=== PATIENT | male | born 1985 | race Caucasian/White ===

== ENCOUNTER → 2020-08-07 12:59 | Outpatient (BNVA) | payer OTHER, SELFPAY | PROVIDERS: PCP Internal Medicine; Visit Provider Physician Assistant ==

== ENCOUNTER 2020-08-09 15:42 | Outpatient (REF) | payer OTHER, SELFPAY ==
[2020-08-09 16:21] LABS: MANUAL DIFF FLAG NO
[2020-08-09 16:30] LABS: Basophils Absolute Auto 0.1 X10*3/uL (0.0-0.2); Basophils Percent Auto 0.7 % (0-2); Eosinophils Absolute Auto 0.3 X10*3/uL (0.0-0.4); Eosinophils Percent Auto 2.7 % (0-4); Hematocrit 45.4 % (42-52); Hemoglobin 14.8 g/dl (14.0-18.0); Imm Gran Abs Auto 0.04 X10*3/uL (0.00-0.03); Imm Gran Pct Auto 0.4 % (0.0-0.4); Lymphocytes Absolute Auto 2.9 X10*3/uL (1.2-4.9); Lymphocytes Percent Auto 26.6 % (20-40); Mean Corpuscular HGB Conc 32.6 g/dl (31.0-36.0); Mean Corpuscular Hemoglobin 29.5 pg (27.0-33.0); Mean Corpuscular Volume 90.6 fL (80-98); Mean Platelet Volume 11.3 fL (9.4-12.4); Monocytes Absolute Auto 1.1 X10*3/uL (0.1-1.2); Monocytes Percent Auto 9.7 % (2-11); Neutrophils Absolute Auto 6.5 X10*3/uL (2.0-8.3); Neutrophils Percent Auto 59.9 % (45-73); Platelet Count 276 X10*3/uL (160-400); Red Blood Count 5.01 X10*6/uL (4.60-5.80); Red Cell Distribution Width 12.6 % (11.0-16.0); White Blood Count 10.8 X10*3/uL (4.8-10.8)
[2020-08-09 16:45] LABS: Alanine Aminotransferase 64 U/L (0-40); Albumin Level 4.7 g/dL (3.5-5.0); Alkaline Phosphatase 73 U/L (39-117); Anion Gap 11 (12-20); Aspartate Amino Transferase 34 U/L (5-37); Bilirubin Total 0.5 mg/dL (0.0-1.0); Blood Urea Nitrogen 12 mg/dL (9-16); Calcium 9.2 mg/dL (8.4-10.2); Carbon Dioxide 28 mmol/L (22-29); Chloride 105 mmol/L (96-108); Estimated Glomerular Filt Rate > 60; Glucose Random 93 mg/dL (60-115); Potassium 4.1 mmol/L (3.3-5.1); Sodium 140 mmol/L (135-145); Total Protein 7.3 g/dL (6.5-8.0)
== END 2020-08-09 15:43 | disposition home or self-care (01) ==
LOC: HO.LAB 15:42
PROVIDERS: Physician Assistant; PCP Internal Medicine; Visit Provider Nurse Practitioner Gerontology
DX: R74.01 Elevation of levels of liver transaminase levels (principal); R10.11 Right upper quadrant pain
CPT/HCPCS: 36415; 80053; 85025

== ENCOUNTER 2020-08-15 16:37 | Outpatient (REF) | payer OTHER, SELFPAY | END 2020-08-15 16:38 | disposition home or self-care (01) | LOC: HO.LNP 16:37 | PROVIDERS: Visit Provider Physician Assistant | DX: A04.8 Other specified bacterial intestinal infections (principal) | CPT/HCPCS: 87338 ==

== ENCOUNTER 2020-08-16 08:26 | Outpatient (REF) | payer OTHER, SELFPAY ==
--- NOTE | ~2020-08-16 | US_ITS ---
EXAMINATION: US ABDOMEN COMPLETE CLINICAL INFORMATION: Unspecified abdominal pain. COMPARISON: CT abdomen and pelvis 05/10/2017. Ultrasound abdomen 02/20/2012 and 01/24/2012. TECHNIQUE: Real-time imaging of the abdominal viscera. FINDINGS: PANCREAS: Not well seen due to overlying bowel gas. ABDOMINAL AORTA: The proximal, mid, and distal segments are normal in caliber. INFERIOR VENA CAVA: Visualized portions are normal. LIVER: The liver is normal in size. The liver contour is normal. There is diffuse increased liver parenchymal echogenicity, consistent with hepatic steatosis. No focal hepatic lesion. There is no intrahepatic biliary duct dilatation seen. GALLBLADDER: Surgically absent. COMMON BILE DUCT: Normal in caliber measuring 0.5 cm in diameter. RIGHT KIDNEY: Normal. No hydronephrosis. No renal calculi or focal parenchymal lesions. The kidney measures 12.0 cm in maximum dimension. LEFT KIDNEY: Normal. No hydronephrosis. No renal calculi or focal parenchymal lesions. The kidney measures 12.1 cm in maximum dimension. SPLEEN: Normal. The spleen measures 9.8 cm in maximum dimension. FREE FLUID: None. US/US abdomen complete IMPRESSION: Redemonstration of hepatic steatosis. No hepatic parenchymal lesion or biliary ductal dilatation. Otherwise unremarkable examination.
== END 2020-08-16 08:27 | disposition home or self-care (01) ==
LOC: HO.US 08:26
PROVIDERS: PCP Internal Medicine; Visit Provider Physician Assistant
DX: R10.9 Unspecified abdominal pain (principal); A04.8 Other specified bacterial intestinal infections
CPT/HCPCS: 76700

== ENCOUNTER → 2020-08-23 13:11 | Outpatient (BNVA) | payer OTHER, SELFPAY | PROVIDERS: PCP Internal Medicine; Visit Provider Physician Assistant ==

== ENCOUNTER 2025-04-06 14:47 | Outpatient (AMB) | payer OTHER, SELFPAY ==
--- NOTE | 2025-04-06 14:51 | MHC.PC.OV ---
Vital Signs 04/06/25 14:55 Height 5 ft 9.09 in Weight 198 lb 6 oz BMI 29.2 BP 143/90 H Blood Pressure Location Rt brachial Position Sitting Respiration 16 Pulse 107 H Pulse Source Pulse Oximeter Temp 98.1 F Temp Source Oral Pulse Oximetry (%) 97 Oxygen Delivery Method Room Air Intake Visit Reasons: DIRECTOR POST Complex / frequent changes in urine color Photogrammetric Surveyor Required: No Accompanied by: Self / Same As Patient Allergies acetaminophen (From Percocet) Adverse Reaction (Unknown, Verified 04/06/25 14:51) Nausea/Vomiting oxycodone (From Percocet) Adverse Reaction (Unknown, Verified 04/06/25 14:51) Nausea/Vomiting Tobacco use date assessed: 04/06/25 Dental Screening Dental Screen Date: 04/06/25 Did you have a dental visit in the last 12 months?: Yes Did you have a dental problem in the last 6 months where you did not have access to dental care?: No Was dental information given to patient?: Patient has dentist HPI HPI Comments History of Present Illness Details History of Present Illness The patient is a 39-year-old male presenting for evaluation of an episode of gross hematuria. Gross Hematuria: The patient reports one episode of gross hematuria yesterday, which he noticed after a bowel movement. He describes the urine as a massive red color, like blood, with no azure principal solution specialist shade. He states this has never happened before to this degree, although he has experienced azure principal solution specialist-colored urine in the past when he had gallstones. He denies consumption of foods that could alter urine color, such as beets. Gastroesophageal Reflux Disease (GERD): The patient has a history of chronic heartburn. He reports waking up with nausea and occasionally vomiting a little upon opening his mouth. He is currently taking omeprazole 20 mg but reports it is not effective. Fatty Liver Disease: The patient has a known history of fatty liver. He also reports that his skin appears yellow. History of Cholecystectomy: The patient has a history of gallstones and underwent a cholecystectomy. Family History of Polycystic Kidney Disease: The patient reports his mother suffered from kidney cysts, which led to high blood pressure. He states her kidneys were ultimately destroyed by the cysts. Social History: The patient has been smoking marijuana for five years and denies any other illicit drug use. 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 Surgical History: - Cholecystectomy for gallstones Medications: - Omeprazole 20 mg for acid reflux, which the patient reports as ineffective. Social History: - Employment: Patient is employed as a warehouse assistant. - Substance Use: He has smoked marijuana for 5 years and denies the use of other drugs. Family History: - Mother: History of kidney cysts, which caused hypertension and resulted in renal failure. Past Medical History - Fatty liver disease - Cholelithiasis - Gastroesophageal reflux disease - History of muscle spasm diagnosed by CT scan and X-ray in [facility] Maintenance - Substance use was discussed, with the patient reporting marijuana use. [facility] Medical History (Updated 04/06/25 @ 22:30 by Ross Patel MD) Marijuana use Family history of polycystic kidney disease Fatty liver Gross hematuria Acid reflux Surgical History History of cholecystectomy (~2014) Family History Father No problems noted. Mother Hypertension CVA (cerebral vascular accident) Kidney disease Social History Household Members: Spouse Housing: House Alcohol intake: current Alcohol intake frequency: a few times a week Patient Tobacco Use Status: Never used Tobacco Cigarettes Per Day: 3 Substance Use Type: Marijuana service: No Current occupational status: employed Current occupation: [employer] Assistant Cognitive needs: No Hearing needs: No Vision needs: No Questionnaire PHQ-9 Over the last 2 weeks, how often have you been bothered by any of the following problems? 1. Little interest or pleasure in doing things: not at all 2. Feeling down, depressed, or hopeless: not at all 3. Trouble falling or staying asleep, or sleeping too much: not at all 4. Feeling tired or having little energy: not at all 5. Poor appetite or overeating: not at all 6. Feeling bad about yourself - or that you are a failure or have let yourself or your family down: not at all 7. Trouble concentrating on things, such as reading the newspaper or watching television: not at all 8. Moving or speaking so slowly that other people could have noticed. Or the opposite - being so fidgety or restless that you have been moving around a lot more than usual: not at all 9. Thoughts that you would be better off or of hurting yourself in some way: not at all Total score: 0 Source: Developed by Drs. Jamey Gonzalez, Feli Macias, Remberto Roy and colleagues, with an educational nirmala from [employer]. Thrive Questionnaire Date Thrive assessed: 04/05/25 I am a: Patient What is your living situation today?: I have a steady place to live Within the past 12 months, did the food you bought not last and you didn't have the money to get more?: Sometimes True Within the past 12 months, did you worry whether your food would run out before you got money to buy more?: Sometimes True Do you have trouble paying for medicines?: No Do you have trouble getting transportation to medical appointments?: No Do you have trouble paying your heating and electricity bill?: Yes Do you have trouble taking care of your child, family member or friend?: No Do you have trouble with day-to-day activities such as bathing, preparing meals, shopping, managing finances, etc.?: No Are you currently unemployed and looking for a job?: No Are you interested in more education?: No Please select the resources that you would like help with: Food and Utilities Currently or been in a relationship where the following occur: I choose not to answer THRIVE Score: 3 AUDIT C Alcohol Use Questionnaire (AUDIT-C) 1. How often do you have a drink containing alcohol?: 2-3 times a week 2. How many drinks containing alcohol do you have on a typical day when you are drinking?: 5 or 6 3. How often do you have six or more drinks on one occasion?: Weekly Total Score: 8 RAJENDRA-7 AMB Questionnaire RAJENDRA-7 Feeling nervous, anxious, or on edge: 0 = Not at all Not being able to stop or control worryin = Not at all Worrying too much about different things: 0 = Not at all Trouble relaxin = Not at all Being so restless that it is hard to sit still: 0 = Not at all Becoming easily annoyed or irritable: 0 = Not at all Feeling afraid as if something awful might happen: 0 = Not at all Total RAJENDRA-7 score (0-4 normal; 5-9 mild; 10-14 moderate; 15-21 severe): 0 Source: Developed by Drs. Jamey Gonzalez, Feli Macias, Remberto Roy and colleagues, with an educational nirmala from [employer]. Review of Systems Narrative Review of Systems - Genitourinary: Reports one episode of gross hematuria yesterday. - Gastrointestinal: Reports chronic heartburn, morning nausea, and occasional vomiting. - Integumentary: Reports his skin is yellow. - Constitutional: Denies feeling unwell, stating he feels fantastic. 10-point ROS reviewed and negative except as noted in HPI Physical exam (Primary Care) Vital Signs: Last Vital Signs Temp 98.1 F 04/06/25 14:55 Pulse 107 H 04/06/25 14:55 Resp 16 04/06/25 14:55 BP 143/90 H 04/06/25 14:55 Pulse Ox 97 04/06/25 14:55 Oxygen Delivery Method Room Air 04/06/25 14:55 BMI result Body Mass Index 29.2 Tobacco/Smoking Status: Tobacco use Status Tobacco use date assessed 04/06/25 04/06/25 15:02 Patient Tobacco Use Status Never used Tobacco 04/06/25 15:02 PHQ-9: PHQ-9 Score PHQ-9: Total score 0 04/06/25 14:51 Thrive Assessment: Date of Thrive Assessment Date Thrive assessed 04/05/25 04/06/25 14:51 Currently or been in a relationship where the following occur: I choose not to answer Narrative Physical Exam General: Well-appearing, in no acute distress. Vital signs: Within normal limits. HEENT: Normocephalic, atraumatic. PERRLA, EOMI. Conjunctiva clear, sclera anicteric. Oropharynx clear, mucous membranes moist. TMs intact bilaterally. Neck: Supple, no lymphadenopathy, no thyromegaly, no JVD or carotid bruits. Cardiovascular: RRR, normal S1/S2, no murmurs, rubs, or gallops. Peripheral pulses 2+ and symmetric. No edema. Respiratory: Lungs clear to auscultation bilaterally, no wheezes, rales, or rhonchi. Normal effort. Abdomen: Soft, non-tender, non-distended. Normoactive bowel sounds. No hepatosplenomegaly, no masses. Patient reports history of fatty liver and heartburn. MSK: Full range of motion, no joint swelling or deformity. Normal gait. Skin: Warm, dry, intact. No rashes, lesions, or pallor. Patient reports occasional yellowing of the skin. Neuro: Alert and oriented x3. Cranial nerves II-XII intact. Strength 5/5 throughout. Sensation intact. Reflexes 2+ symmetric. Normal coordination and gait. Psych: Appropriate mood and affect. Normal judgment and insight. Coding Level of Care Code New Pt Level 4 (42954) Diagnoses Gross hematuria R31.0 Acid reflux K21.9 Fatty liver K76.0 Family history of polycystic kidney disease Z82.71 Marijuana use F12.90 Assessment & Plan Assessment & Plan (1) Gross hematuria: Code(s): R31.0 - Gross hematuria Category: Medical (2) Acid reflux: Code(s): K21.9 - Gastro-esophageal reflux disease without esophagitis Category: Medical (3) Fatty liver: Code(s): K76.0 - Fatty (change of) liver, not elsewhere classified Category: Medical (4) Family history of polycystic kidney disease: Code(s): Z82.71 - Family history of polycystic kidney Category: Medical (5) Marijuana use: Code(s): F12.90 - Cannabis use, unspecified, uncomplicated Category: Social Hx Plan Consent The patient was informed of the plan to order laboratory studies, including blood work and urinalysis, as well as a liver sonogram. He was also informed of the medication change from omeprazole to pantoprazole. The patient verbally agreed to the proposed diagnostic and treatment plan, including a follow-up visit in two weeks. Patient was informed and verbally consented to the use of an ambient scribe for clinic note documentation during this visit. Plan 1. Gross Hematuria - Will order a urinalysis to confirm the presence of blood. - Will perform a comprehensive lab workup including a CBC, CMP to assess kidney and liver function, electrolytes, calcium, HbA1c, lipid panel, magnesium, thyroid panel, B12, folate, and vitamin D. - Screening for Hepatitis B, C, and HIV will also be conducted. - Will investigate further considering the significant family history of kidney cysts. 2. Gastroesophageal Reflux Disease (Gerd) - Due to the ineffectiveness of his current medication, the patient will be switched from omeprazole 20 mg to pantoprazole 20 mg, to be taken twice daily, once in the morning and once at night. 3. Fatty Liver Disease - A sonogram of the liver will be ordered to assess its current state. - Will request prior medical records from [facility] to review previous imaging, including a CT scan. 4. Follow-Up - The patient will return for a follow-up appointment in two weeks to review lab and imaging results. Discussion Notes I discussed the plan of care with the patient, starting with a workup for his hematuria, which is concerning given his mother's history of polycystic kidney disease. I explained that we would be running comprehensive blood tests and a urinalysis to get a broad overview of his health, including kidney function, liver status, and blood counts. We also discussed his ongoing heartburn and agreed to change his medication from omeprazole to pantoprazole 20 mg twice daily to see if it improves his symptoms. Given his history of fatty liver, I recommended a liver sonogram. I advised him we would request his prior records from [facility] for review. The patient understood and agreed with the plan to follow up in two weeks to discuss all the results. Patient Instructions - Please go to the lab to have blood tests and a urine test done. - You will need to get a sonogram (ultrasound) of your liver. - Stop taking your current omeprazole. - Start taking pantoprazole 20 mg. Take one pill in the morning and one pill at night. - Please sign the paperwork at the front desk coordinator so we can get your past medical records from [facility]. - We will schedule a follow-up visit in two weeks to talk about your test results. Medical Decision Making The patient is a 39-year-old male presenting with a new, single episode of gross hematuria. The primary concern is to identify the etiology of the hematuria. Given his significant family history of renal cysts leading to kidney failure in his mother, a full workup is warranted to evaluate his renal function and screen for underlying renal pathology. The plan includes comprehensive laboratory studies and a urinalysis. Separately, the patient complains of chronic, poorly controlled GERD symptoms despite treatment with omeprazole, as well as morning nausea. The medication will be changed to pantoprazole 20 mg BID for better symptom control. In light of his history of fatty liver and a subjective report of jaundice, a liver sonogram and LFTs are indicated. Requesting prior records from [facility] will provide valuable context from previous evaluations. We will follow up in two weeks to review all results and determine the next steps in management. Total time spent caring for the patient today was 30 minutes. This includes time spent before the visit reviewing the chart, time spent documenting, and time spent reviewing laboratory results, diagnostic imaging, medications, performing a medically necessary evaluation, counseling on diagnoses, care coordination. Orders: Orders Complete Blood Count Auto Diff Today Z13.9 - Encounter for screening, unspecified Hepatitis B Surface Antigen Today Z13.9 - Encounter for screening, unspecified HIV Ab/Ag Today Z13.9 - Encounter for screening, unspecified Lipid Panel Today Z13.9 - Encounter for screening, unspecified UA CC w/rflx Micro + Cult Today Z13.9 - Encounter for screening, unspecified Microalbumin, Random (w Creat) Today Z13.9 - Encounter for screening, unspecified TSH reflex Free T4 Today Z13.9 - Encounter for screening, unspecified Comprehensive Met. Panel Today Z13.9 - Encounter for screening, unspecified Hemoglobin A1c Today Z13.9 - Encounter for screening, unspecified Hepatitis B Surface Antibody Today Z13.9 - Encounter for screening, unspecified Hepatitis C Antibody Today Z13.9 - Encounter for screening, unspecified Magnesium Today Z13.9 - Encounter for screening, unspecified Vitamin B12 and Folate Today Z13.9 - Encounter for screening, unspecified Vitamin D 1,25 dihydroxy Today Z13.9 - Encounter for screening, unspecified US abdomen limited Today K76.0 - Fatty (change of) liver, not elsewhere classified Medications: New pantoprazole 20 mg PO BID 60 tabs 0RF Discontinued sucralfate (Carafate) Discontinued Reason: Doctor's Order 10 mL PO BID 420 mL 0RF omeprazole Discontinued Reason: Doctor's Order 20 mg PO DAILY 30 caps 5RF
[2025-04-06 14:55] VITALS: BP 143/90; PULSE 107; RESP 16; TEMP 36.7; O2SAT 97; BMI 29.2
== END 2025-04-06 15:24 | disposition home or self-care (01) ==
LOC: HO.HMCFMS 14:48
PROVIDERS: PCP Student in an Organized Health Care Education/Training Program; Visit Provider Student in an Organized Health Care Education/Training Program
DX: R31.0 Gross hematuria (principal); K21.9 Gastro-esophageal reflux disease without esophagitis; K76.0 Fatty (change of) liver, not elsewhere classified; Z82.71 Family history of polycystic kidney; F12.90 Cannabis use, unspecified, uncomplicated

== ENCOUNTER 2025-04-06 14:47 | Outpatient (REF) | payer OTHER, SELFPAY ==
[2025-04-06 17:33] LABS: MANUAL DIFF FLAG NO
[2025-04-06 17:47] LABS: Appearance Urine Clear; Glucose Urine UA Negative (Negative); PH 6.0 (5.0-9.0); Specific Gravity - Urine >= 1.030 (1.005-1.025)
[2025-04-06 17:52] LABS: Hematocrit 48.4 % (42.0-52.0); Hemoglobin 15.9 g/dl (14.0-18.0); Imm Gran Abs Auto 0.04 X10*3/uL (0.00-0.03); Imm Gran Pct Auto 0.4 % (0.0-0.4); Lymphocytes Absolute Auto 2.8 X10*3/uL (1.2-4.9); Mean Corpuscular HGB Conc 32.9 g/dl (31.0-36.0); Mean Corpuscular Hemoglobin 30.0 pg (27.0-33.0); Mean Corpuscular Volume 91.3 fL (80.0-98.0); NRBC Abs Auto 0.000 X10*3/uL (0.0-0.012); NRBC Pct Auto 0.0 /100WBC (0.0-0.2); Platelet Count 282 X10*3/uL (160-400); Red Blood Count 5.30 X10*6/uL (4.60-5.80); White Blood Count 11.3 X10*3/uL (4.8-10.8)
[2025-04-06 18:05] LABS: Alanine Aminotransferase 61 U/L (0-40); Albumin Level 5.3 g/dL (3.5-5.0); Alkaline Phosphatase 78 U/L (39-117); Anion Gap 14 (12-20); Aspartate Amino Transferase 44 U/L (5-37); Blood Urea Nitrogen 12 mg/dL (9-16); Calcium 9.6 mg/dL (8.4-10.2); Carbon Dioxide 26 mmol/L (22-29); Chloride 107 mmol/L (96-108); Cholesterol 82 mg/dL (<200); Estimated Glomerular Filt Rate > 60; HDL Cholesterol 35 mg/dL (>40); Magnesium 2.3 mg/dL (1.6-2.6); Potassium 3.8 mmol/L (3.3-5.1); Sodium 143 mmol/L (135-145); Total Protein 8.0 g/dL (6.5-8.0); Triglycerides 31 mg/dL (<150)
[2025-04-06 18:28] LABS: Microalbum/Creatinine Ratio Ur 6.5 ug/mg cr (<30)
[2025-04-06 18:31] LABS: Folate 12.0 ng/mL (> or = 4.0); Vitamin B12 323 pg/mL (200-900)
[2025-04-07 05:08] LABS: HBS Num1 0.17 mIU/mL (0-7.99); HBsAGNum1 0.37 S/CO (0.00-0.99); HIV Num 1 0.08 S/CO (0.00-0.99); Hepatitis B Surface Antigen Negative (Negative); ~HepC Num1 0.07 S/CO (0.00-0.79); ~Hepatitis B Surface Antibody NONREACTIVE (Nonreactive); ~Hepatitis C Antibody Nonreactive (Nonreactive)
[2025-04-09 20:13] LABS: VITAMIN D (1,25 OH) D3 50 pg/mL; Vit D (1,25-Dihydroxy) Total 50 pg/mL (18-72); Vitamin D (1,25 OH) D2 <8 pg/mL
== END 2025-04-06 14:48 | disposition home or self-care (01) ==
LOC: HO.HKASLDS 14:47
PROVIDERS: PCP Internal Medicine; Visit Provider Student in an Organized Health Care Education/Training Program
DX: R31.0 Gross hematuria (principal); K21.9 Gastro-esophageal reflux disease without esophagitis; K76.0 Fatty (change of) liver, not elsewhere classified; F12.90 Cannabis use, unspecified, uncomplicated; Z13.1 Encounter for screening for diabetes mellitus; Z82.71 Family history of polycystic kidney
CPT/HCPCS: 36415; 80053; 80061; 81003; 82043; 82570; 82607; 82652; 82746; 83036; 83735; 84443; 85025; 86706; 86803; 87340; 87389; 96127

== ENCOUNTER 2025-04-20 15:50 | Outpatient (AMB) | payer OTHER, SELFPAY ==
--- NOTE | 2025-04-20 15:55 | A.OFFPC_ITS ---
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 Accompanied by: Self / Same As Patient Allergies acetaminophen (From Percocet) Adverse Reaction (Unknown, Verified 04/20/25 15:57) Nausea/Vomiting oxycodone (From Percocet) Adverse Reaction (Unknown, Verified 04/20/25 15:57) Nausea/Vomiting Medication List - Last Reconciled 04/20/25 by Ross Patel MD [blod pressure kit As directed] pantoprazole 20 mg PO BID Tobacco use date assessed: 04/06/25 Dental Screening Dental Screen Date: 04/06/25 HPI HPI Comments History of Present Illness Details History of Present Illness The patient is a 39-year-old male presenting for review of laboratory results and management of hypertension. Elevated liver enzymes: The patient has slightly elevated liver enzymes, a finding he was previously informed about at the hospital. Recent labs show normal glucose, calcium, and magnesium levels. He does not have diabetes. Hypertension: The patient has a problem with hypertension. He consumes energy drinks such as Red Bull. Social History: - Substance Use: The patient reports dri nking Red Bull and was advised to stop consuming energy drinks. - He was also advised not to smoke befor e taking his blood pressure. Diagnostic Results: - Labs: Glucose, calcium, and magnesium levels are normal. - Labs: Liver enzymes are slightly eleva jayant. Past Medical History - Elevated liver enzymes - Hypertension Health Maintenance - The patient was advised to stop drinki ng energy drinks. - The patient was counseled on proper [facility] blood pressure monitoring techniques. [facility] Medical History (Updated 04/20/25 @ 20:40 by Ross Patel MD) Overweight (BMI 25.0-29.9) Tachycardia Elevated blood pressure reading Elevated liver enzymes Marijuana use Family history of polycystic kidney disease Fatty liver Gross hematuria Acid reflux Surgical History History of cholecystectomy (~2014) Family History Father No problems noted. Mother Hypertension CVA (cerebral vascular accident) Kidney disease Social History Household Members: Spouse Housing: House Alcohol intake: current Alcohol intake frequency: a few times a week Patient Tobacco Use Status: Never used Tobacco Cigarettes Per Day: 3 Substance Use Type: Marijuana service: No Current occupational status: employed Current occupation: [employer] Cognitive needs: No Hearing needs: No Vision needs: No Questionnaire Thrive Questionnaire Date Thrive assessed: 04/05/25 I am a: Patient What is your living situation today?: I have a steady place to live Within the past 12 months, did the food you bought not last and you didn't have the money to get more?: Sometimes True Within the past 12 months, did you worry whether your food would run out before you got money to buy more?: Sometimes True Do you have trouble paying for medicines?: No Do you have trouble getting transportation to medical appointments?: No Do you have trouble paying your heating and electricity bill?: Yes Do you have trouble taking care of your child, family member or friend?: No Do you have trouble with day-to-day activities such as bathing, preparing meals, shopping, managing finances, etc.?: No Are you currently unemployed and looking for a job?: No Are you interested in more education?: No Currently or been in a relationship where the following occur: I choose not to answer THRIVE Score: 3 Review of Systems Narrative Review of Systems 10-point ROS reviewed and negative except as noted in HPI Physical exam (Primary Care) Vital Signs: Last Vital Signs Temp 98.3 F 04/20/25 15:57 Pulse 107 H 04/20/25 15:57 Resp 17 04/20/25 15:57 BP 156/81 H 04/20/25 15:57 Pulse Ox 97 04/20/25 15:57 Oxygen Delivery Method Room Air 04/20/25 15:57 BMI result Body Mass Index 28.6 Tobacco/Smoking Status: Tobacco use Status Tobacco use date assessed 04/06/25 04/20/25 16:00 Patient Tobacco Use Status Never used Tobacco 04/20/25 16:00 Thrive Assessment: Date of Thrive Assessment Date Thrive assessed 04/05/25 04/20/25 16:00 Currently or been in a relationship where the following occur: I choose not to answer Narrative Physical Exam General: Well-appearing, in no acute distress. Vital signs: Blood pressure 120/65. HEENT: Normocephalic, atraumatic. PERRLA, EOMI. Conjunctiva clear, sclera anicteric. Oropharynx clear, mucous membranes moist. TMs intact bilaterally. Neck: Supple, no lymphadenopathy, no thyromegaly, no JVD or carotid bruits. Cardiovascular: RRR, normal S1/S2, no murmurs, rubs, or gallops. Peripheral pulses 2+ and symmetric. No edema. Respiratory: Lungs clear to auscultation bilaterally, no wheezes, rales, or rho nchi. Normal effort. Abdomen: Soft, non-tender, non-distended. Normoactive bowel sounds. No hepatosplenomegaly, no masses. MSK: Full range of motion, no joint swelling or deformity. Normal gait. Skin: Warm, dry, intact. No rashes, lesions, or pallor. Neuro: Alert and oriented x3. Cranial nerves II-XII intact. Strength 5/5 throughout. Sensation intact. Reflexes 2+ symmetric. Normal coordination and gait. Psych: Appropriate mood and affect. Normal judgment and insight. Coding Level of Care Code Est Pt Level 3 (49369) Diagnoses Acid reflux K21.9 Elevated liver enzymes R74.8 Elevated blood pressure reading R03.0 Tachycardia R00.0 Overweight (BMI 25.0-29.9) E66.3 Assessment & Plan Assessment & Plan (1) Acid reflux: Code(s): K21.9 - Gastro-esophageal reflux disease without esophagitis Category: Medical (2) Elevated liver enzymes: Code(s): R74.8 - Abnormal levels of other serum enzymes Category: Medical (3) Elevated blood pressure reading: Code(s): R03.0 - Elevated blood-pressure reading, without diagnosis of hypertension Category: Medical (4) Tachycardia: Code(s): R00.0 - Tachycardia, unspecified Category: Medical (5) Overweight (BMI 25.0-29.9): Code(s): E66.3 - Overweight Category: Medical Plan Consent Patient was informed and verbally consented to the use of an ambient scribe for clinic note documentation during this visit. Plan 1. Elevated Liver Enzymes - Will obtain an ultrasound to evaluate the elevated liver enzymes. 2. Hypertension - A prescription for a blood pressure kit with a large cuff was sent to a medical supply [employer]. - The patient was instructed to monitor blood pressure at home. - The patient was advised to stop consuming energy drinks, such as Red Bull. Discussion Notes I reviewed the lab results with the patient, noting that his glucose, calcium, and magnesium levels were normal, but his liver enzymes were slightly elevated. We discussed that an ultrasound will be ordered to investigate this finding. I also discussed his hypertension and provided detailed instructions for monitoring his blood pressure at home, including technique and timing. I have sent a prescription for a large-cuff blood pressure kit to a medical supply [employer]. We discussed the negative health effects of energy drinks, and I advised him to stop consuming them. Patient Instructions - An appointment will be made for an ultrasound to check your liver. - A prescription for a blood pressure machine with a large cuff was sent to a [employer] supply [employer]. - Before checking your blood pressure, sit with your feet flat on the floor, your back straight, and relax for 10 minutes. - Do not smoke, drink coffee, or have energy drinks before taking your blood pressure. - Check your blood pressure 3 times and give us the best reading of the three. - Stop drinking energy drinks like Red Bull, as they are not good for your health. - When you take your blood pressure, rest your arm at the same level as your heart. Medical Decision Making The patient is a 39-year-old male whose recent lab work showed slightly elevated liver enzymes with normal glucose, calcium, and magnesium. Given this finding, which the patient has been aware of since a prior hospital visit, an ultrasound is indicated to further evaluate the etiology. The patient also has hypertension and consumes energy drinks. Management includes counseling on cessation of energy drink use and initiating home blood pressure monitoring. A blood pressure kit with an appropriately sized cuff has been prescribed, and the patient has been educated on the correct measurement procedure to ensure accurate data for ongoing management. Total Time Statement 20 min Total time spent caring for the patient today includes pre-visit chart review, documentation, review of laboratory and diagnostic imaging results, medication reconciliation, medically necessary evaluation, counseling on diagnoses, care coordination, ordering appropriate tests and medications, review of tests performed by other providers, reporting test results to the patient, and communication with other healthcare providers. Medications: New [blod pressure kit] As directed 1 ea 0RF I10 - Essential (primary) hypertension
[2025-04-20 15:57] VITALS: BP 156/81; PULSE 107; RESP 17; TEMP 36.8; O2SAT 97; BMI 28.6
== END 2025-04-20 16:12 | disposition home or self-care (01) ==
LOC: HO.HMCFMS 15:50
PROVIDERS: PCP Student in an Organized Health Care Education/Training Program; Visit Provider Student in an Organized Health Care Education/Training Program
DX: K21.9 Gastro-esophageal reflux disease without esophagitis (principal); R74.8 Abnormal levels of other serum enzymes; R03.0 Elevated blood-pressure reading, without diagnosis of hypertension; R00.0 Tachycardia, unspecified; E66.3 Overweight

== ENCOUNTER 2025-05-03 14:01 | Outpatient (AMB) | payer OTHER, SELFPAY ==
--- NOTE | 2025-05-03 14:03 | A.OFFPC_ITS ---
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 Accompanied by: Self / Same As Patient Allergies acetaminophen (From Percocet) Adverse Reaction (Unknown, Verified 05/03/25 14:06) Nausea/Vomiting oxycodone (From Percocet) Adverse Reaction (Unknown, Verified 05/03/25 14:06) Nausea/Vomiting Medication List - Last Reconciled 05/03/25 by Ross Patel MD [blod pressure kit As directed] pantoprazole 20 mg PO BID Tobacco use date assessed: 04/06/25 Dental Screening Dental Screen Date: 04/06/25 HPI HPI Comments History of Present Illness Details History of Present Illness The patient is a 39 year old individual presenting with a follow-up for blood pressure monitoring. Elevated blood pressure: The patient has a history of variable blood pressure readings, with past values including 138, 133, 133, 126, 128, 141, 127, and 170. The patient is not currently taking any antihypertensive medication. Medications: - The patient is not on any medications. Diagnostic Results: - Historical Blood Pressure Readings: Pr ior readings included 138, 133, 133, 126, 128, 141, 127, and 170. Past Medical History - History of elevated blood pressure [facility] Maintenance - Blood pressure is being monitored to d etermine the need for medication. - An ultrasound is scheduled for June 13. [facility] Medical History (Updated 04/20/25 @ 20:40 by Ross Patel MD) Overweight (BMI 25.0-29.9) Tachycardia Elevated blood pressure reading Elevated liver enzymes Marijuana use Family history of polycystic kidney disease Fatty liver Gross hematuria Acid reflux Surgical History History of cholecystectomy (~2014) Family History Father No problems noted. Mother Hypertension CVA (cerebral vascular accident) Kidney disease Social History (Reviewed 05/03/25 @ 14:06 by DAISY Hendrickson Household Members: Spouse Housing: House Alcohol intake: current Alcohol intake frequency: a few times a week Patient Tobacco Use Status: Never used Tobacco Cigarettes Per Day: 3 e-Cigarette/Vaping Use: Never Used Substance Use Type: Marijuana service: No Current occupational status: employed Current occupation: [employer] Cognitive needs: No Hearing needs: No Vision needs: No Questionnaire Thrive Questionnaire Date Thrive assessed: 04/05/25 I am a: Patient What is your living situation today?: I have a steady place to live Within the past 12 months, did the food you bought not last and you didn't have the money to get more?: Sometimes True Within the past 12 months, did you worry whether your food would run out before you got money to buy more?: Sometimes True Do you have trouble paying for medicines?: No Do you have trouble getting transportation to medical appointments?: No Do you have trouble paying your heating and electricity bill?: Yes Do you have trouble taking care of your child, family member or friend?: No Do you have trouble with day-to-day activities such as bathing, preparing meals, shopping, managing finances, etc.?: No Are you currently unemployed and looking for a job?: No Are you interested in more education?: No Currently or been in a relationship where the following occur: I choose not to answer THRIVE Score: 3 Review of Systems Narrative Review of Systems 10-point ROS reviewed and negative except as noted in HPI Physical exam (Primary Care) Vital Signs: Last Vital Signs Temp 98.1 F 05/03/25 14:07 Pulse 107 H 05/03/25 14:07 Resp 16 05/03/25 14:07 BP 142/67 H 05/03/25 14:07 Pulse Ox 97 05/03/25 14:07 Oxygen Delivery Method Room Air 05/03/25 14:07 BMI result Body Mass Index 28.4 Tobacco/Smoking Status: Tobacco use Status Tobacco use date assessed 04/06/25 05/03/25 14:05 Patient Tobacco Use Status Never used Tobacco 05/03/25 14:05 e-Cigarette/Vaping Use Never Used 05/03/25 14:08 Thrive Assessment: Date of Thrive Assessment Date Thrive assessed 04/05/25 05/03/25 14:05 Currently or been in a relationship where the following occur: I choose not to answer Narrative Physical Exam General: Well-appearing, in no acute distress. Vital signs: Blood pressure readings noted as 138, 133, 133, 126, 128, 141, 127, 170. Within normal limits. HEENT: Normocephalic, atraumatic. PERRLA, EOMI. Conjunctiva clear, sclera anicteric. Oropharynx clear, mucous membranes moist. TMs intact bilaterally. Neck: Supple, no lymphadenopathy, no thyromegaly, no JVD or carotid bruits. Cardiovascular: RRR, normal S1/S2, no murmurs, rubs, or gallops. Peripheral pulses 2+ and symmetric. No edema. Respiratory: Lungs clear to auscultation bilaterally, no wheezes, rales, or rhonchi. Normal effort. Abdomen: Soft, non-tender, non-distended. Normoactive bowel sounds. No hepatosplenomegaly, no masses. MSK: Full range of motion, no joint swelling or deformity. Normal gait. Skin: Warm, dry, intact. No rashes, lesions, or pallor. Neuro: Alert and oriented x3. Cranial nerves II-XII intact. Strength 5/5 throughout. Sensation intact. Reflexes 2+ symmetric. Normal coordination and gait. Psych: Appropriate mood and affect. Normal judgment and insight. Coding Level of Care Code Est Pt Level 3 (07035) Diagnoses Elevated blood pressure reading R03.0 Acid reflux K21.9 Elevated liver enzymes R74.8 Marijuana use F12.90 Assessment & Plan Assessment & Plan (1) Elevated blood pressure reading: Code(s): R03.0 - Elevated blood-pressure reading, without diagnosis of hypertension Category: Medical (2) Acid reflux: Code(s): K21.9 - Gastro-esophageal reflux disease without esophagitis Category: Medical (3) Elevated liver enzymes: Code(s): R74.8 - Abnormal levels of other serum enzymes Category: Medical (4) Marijuana use: Code(s): F12.90 - Cannabis use, unspecified, uncomplicated Category: Social Hx Plan Consent Patient was informed and verbally consented to the use of an ambient scribe for clinic note documentation during this visit. Plan 1. Elevated Blood Pressure - Current blood pressure is good, and the patient is not on any medication. - Will continue to monitor blood pressure and defer initiation of antihypertensive medication at this time. - The patient is scheduled for an ultrasound on June 13. - Follow-up will be scheduled after the ultrasound is completed. Discussion Notes I reviewed the patient's blood pressure, which was good during this visit. I informed the patient that I would continue to monitor the blood pressure and would not initiate medication at this time, explaining that I want to avoid potential adverse effects such as syncope. We confirmed the patient's upcoming ultrasound on June 13, and I advised a follow-up visit after the procedure. Patient Instructions - You do not need to start any new medications for your blood pressure at this time. - Please attend your scheduled ultrasound on June 13 at 8:00 AM. - We will see you for a follow-up visit after your ultrasound is completed. Medical Decision Making The 39 year old individual presented for a follow-up on blood pressure. The patient's current blood pressure reading is good, and the patient is not on any antihypertensive medication. Based on the stable reading and to avoid potential adverse effects like hypotension and syncope, I have decided to defer pharmacotherapy and continue monitoring. The patient is scheduled for an ultrasound on June 13, and a follow-up visit will be conducted afterward to review the results and reassess the management plan. Total Time Statement 20 min Total time spent caring for the patient today includes pre-visit chart review, documentation, review of laboratory and diagnostic imaging results, medication reconciliation, medically necessary evaluation, counseling on diagnoses, care coordination, ordering appropriate tests and medications, review of tests performed by other providers, reporting test results to the patient, and communication with other healthcare providers.
[2025-05-03 14:07] VITALS: BP 142/67; PULSE 107; RESP 16; TEMP 36.7; O2SAT 97; BMI 28.4
== END 2025-05-03 14:13 | disposition home or self-care (01) ==
LOC: HO.HMCFMS 14:02
PROVIDERS: PCP Student in an Organized Health Care Education/Training Program; Visit Provider Student in an Organized Health Care Education/Training Program
DX: R03.0 Elevated blood-pressure reading, without diagnosis of hypertension (principal); K21.9 Gastro-esophageal reflux disease without esophagitis; R74.8 Abnormal levels of other serum enzymes; F12.90 Cannabis use, unspecified, uncomplicated